=== PATIENT | female | born 1955 | race Caucasian/White ===

== ENCOUNTER 2024-10-12 21:48 | Emergency (ER) | payer OTHER, BC ==
[2024-10-12 21:57] VITALS: BP 131/73; PULSE 82; RESP 20; TEMP 98.2; BMI 19.8
== END 2024-10-12 22:49 | disposition home or self-care (01) ==
LOC: JERFT 21:48
PROC: 2W3KX1Z Immobilization of Left Finger using Splint (ICD-10-PCS; principal; 2024-10-12)
DX: S62.623A Displaced fracture of middle phalanx of left middle finger, initial encounter for closed fracture (principal); Y04.0XXA Assault by unarmed brawl or fight, initial encounter
CPT/HCPCS: 73130-TC-LT-FY; 99283-25